=== PATIENT | female | born 2000 | race African-American/Black ===

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

== ENCOUNTER 2018-06-15 06:16 | Emergency (ER) | payer OTHER, SELFPAY ==
[2018-06-15 06:37] LABS: #Basophils 0.1 thou/uL (0.0-0.2); #Eosinphils 0.4 thou/uL (0.0-0.7); #Lymphocytes 4.7 thou/uL (1.20-3.40); #Monocytes 0.9 thou/uL (0.11-0.59); #Neutrophils 4.5 thou/uL (1.40-6.50); %Basophils 0.9 % (0.0-1.0); %Eosinophils 3.4 % (0.0-10.0); %Lymphocytes 44.9 % (28.0-48.0); %Monocytes 8.4 % (0.0-4.0); %Neutrophils 42.4 % (31.0-61.0); Hemoglobin 13.5 g/dL (12.0-16.0); Mean Corpuscular HGB CONC 33.3 g/dL (32.0-36.0); Mean Corpuscular Volume 87.1 fL (78.0-98.0); Mean Platelet Volume 7.6 fL (7.4-10.4); Platelet Count 275 thou/uL (130-400); Red Blood Cell (RBC) Count 4.65 mill/uL (4.00-5.20); White Blood Cell (WBC) Count 10.6 thou/uL (4.8-10.8)
[2018-06-15 06:40] LABS: Bilirubin Negative (Negative); Blood, Urine Negative (Negative); Clarity CLEAR (Clear); Glucose, Urine (Dipstick) Negative (Negative); Leukocyte Negative (Negative); Nitrite Negative (Negative); Protein, Urine (Dipstick) Negative (Neg-Trace); Specific Gravity, Urine 1.028 (1.002-1.036)
[2018-06-15 06:44] LABS: Pregnancy Test - Urine (BHCG) Negative (Negative); Pregu Control Background? CLEAR/WHITE (CLR/WHITE); Pregu Control Bar Appear? YES (CONTROL BAR); Specific Gravity 1.028 (1.002-1.036)
[2018-06-15] MEDS ORDERED: Azithromycin 250 MG TAB ONE (06:48)
[2018-06-15] MEDS ORDERED: Lidocaine 1% PF 5 ML VIAL ONE (06:48)
[2018-06-15] MEDS ORDERED: cefTRIAXone\\ROCEPHIN 250 MG VIAL ONE (06:48)
[2018-06-15 06:58] LABS: ALT (SGPT) 17 U/L (8-55); AST (SGOT) 13 U/L (5-34); Albumin 3.9 g/dL (3.5-5.0); Alkaline Phosphatase 57 U/L (40-150); Anion Gap 12 mmol/L (10-20); BUN (Urea Nitrogen) 13 mg/dL (7.0-18.7); Bilirubin, Total 0.2 mg/dL (0.2-1.2); Calc. Creatinine Clearance 0 mL/min (70-130); Calcium 9.1 mg/dL (7.8-10.44); Carbon Dioxide 24 mmol/L (22-29); Chloride 109 mmol/L (98-107); Estimated GFR-MDRD Greater than 90; Globulin 3.2 g/dL (2.4-3.5); Glucose 96 mg/dL (70-105); Lipase 21 U/L (8-78); Potassium 4.1 mmol/L (3.5-5.1); Protein, Total 7.1 g/dL (6.0-8.3); Sodium 141 mmol/L (136-145)
[2018-06-16 03:19] LABS: Chlamydia by PCR Not Detected (NotDetected); GC by PCR Not Detected (NotDetected)
== END 2018-06-15 07:45 | disposition home or self-care (01) ==
LOC: ERS 06:16
DX: R10.30 Lower abdominal pain, unspecified (principal); J45.909 Unspecified asthma, uncomplicated
CPT/HCPCS: 36415; 80053; 81003; 81025; 83690; 85025; 87480; 87491; 87510; 87591; 87660; 96372; J0696; J2001

== ENCOUNTER 2019-02-13 09:47 | Outpatient (CLI) | payer BC ==
--- NOTE | 2019-02-13 12:38 | ULT ---
OB ULTRASOUND: 02/13/19 HISTORY: anatomy. FINDINGS: A single live intrauterine gestation is seen with measurements corresponding to an estimated gestatio nal age of 21 weeks, 1 day and ISAIAS at 06/25/19. The estimated weight measures 393 grams or 14 o z (38th percentile by Hadlock criteria). measurements are as follows: BPD 4.97 cm 21 weeks, 1 day HC 18.67 cm 21 weeks, 0 day AC 15.31 cm 20 weeks, 4 day FL 3.65 cm 21 weeks, 5 day heart rate measures 138 beats per minute. MAGDALENE measures 12.6 cm. The placenta is anteriorly loca debora without evidence of placenta previa. A three vessel cord, cord insertion, kidneys, bladder, stomach, four chambered heart, lateral v entricles, cerebellum, spine, lips/nose, upper and lower extremities are visualized. No definite fet al anomalies are seen. IMPRESSION: Single liver IUP of 21 weeks, 1 day estimated gestational age and ISAIAS at 06/25/19. POS: OFF
== END 2019-02-13 09:48 | disposition home or self-care (01) ==
LOC: BICULT 09:47
DX: O09.92 Supervision of high risk pregnancy, unspecified, second trimester (principal); Z3A.21 21 weeks gestation of pregnancy
CPT/HCPCS: 76805

== ENCOUNTER 2019-06-18 05:22 | Inpatient (IN) | payer OTHER, SELFPAY ==
[2019-06-18] MEDS ORDERED: Bicitra 30 ML UDCUP PO SCH (05:36)
[2019-06-18] MEDS ORDERED: Promethazine HCl 25 MG/ML VIAL IM PRN ×3 (05:36→11:02)
[2019-06-18] MEDS ORDERED: hydrALAZINE 20 MG/ML VIAL SLOW IVP PRN ×2 (05:36→11:02)
[2019-06-18] MEDS ORDERED: Ondansetron PF 4 MG/2 ML Vial IVP PRN ×3 (05:36→11:02)
[2019-06-18] MEDS ORDERED: CEFAZOLIN 2 GM in Premix Bag 1 BAG IVPB SCH (05:36)
[2019-06-18] MEDS: Lactated Ringer's 1,000 ML IV SCH ×2 (05:46→06:57)
[2019-06-18 05:49] VITALS: BMI 37.1
[2019-06-18 06:05] LABS: Hemoglobin 10.7 g/dL (12.0-16.0); Mean Corpuscular HGB CONC 33.8 g/dL (32.0-36.0); Mean Platelet Volume 7.6 fL (7.4-10.4); Platelet Count 253 thou/uL (130-400); RBC Distribution Width 11.9 % (11.5-14.5); Red Blood Cell (RBC) Count 3.69 mill/uL (4.20-5.40)
[2019-06-18 06:41] LABS: Syphilis Antibody Nonreactive (Nonreactive); Syphilis Antibody Index 0.05 S/CO (<1.00 Non-Reactive)
[2019-06-18 06:43] LABS: Hep B Surf Ag Non-Reactive S/CO (NonReactive)
[2019-06-18] MEDS ORDERED: HYDROmorphone 2 MG/ML VIAL SLOW IVP PRN (06:55)
[2019-06-18] MEDS ORDERED: Promethazine HCl 25 MG SUPP PR PRN (06:55)
[2019-06-18] MEDS ORDERED: Ondansetron HCl/PF 4 MG/2 ML Vial IVP PRN (06:55)
[2019-06-18] MEDS ORDERED: L&D-Morphine 4 MG/ML VIAL SLOW IVP PRN (06:55)
[2019-06-18] MEDS ORDERED: Naloxone HCl 0.4 mg/ml Vial IV PRN (06:55)
[2019-06-18] MEDS ORDERED: Meperidine HCl/PF 25 MG/ML VIAL SLOW IVP PRN (06:55)
[2019-06-18] MEDS ORDERED: Naloxone HCl 0.4 mg/ml Vial IVP PRN ×2 (06:55)
[2019-06-18] MEDS ORDERED: diphenhydrAMINE 50 MG/ML VIAL IVP PRN (06:55)
[2019-06-18] MEDS ORDERED: Ketorolac Tromethamine 30 MG/ML VIAL IVP PRN (06:55)
[2019-06-18] MEDS ORDERED: Communication Order-Pharmacy FS SCH (07:00)
[2019-06-18] MEDS ORDERED: MORPHINE 5 MG/10 ML PF VIAL ONE (07:00)
[2019-06-18] MEDS ORDERED: Oxytocin 10 UNITS/ML VIAL ONE (07:00)
[2019-06-18] MEDS ORDERED: Ketorolac Tromethamine 30 MG/ML VIAL IVP SCH ×2 (07:00→14:30)
[2019-06-18] MEDS ORDERED: Ondansetron PF 4 MG/2 ML Vial ONE ×2 (07:28→08:29)
[2019-06-18] MEDS ORDERED: ePHEDrine/0.9% NaCl/PF SYRINGE 50 mg/10 ml ONE (07:48)
--- NOTE | 2019-06-18 08:39 | PDOC.OP ---
Operative Note - Operative Note Operative Note: Procedure Note Date of Procedure: 06/18/19 Resident Surgeon: Dr. Fei Nova Primary Surgeon: Dr. Marc Benjamin Procedure: Primary low transverse caesarean section Preoperative Diagnosis: 1) Term intrauterine 2) Prior C/S x2 Postoperative Diagnosis: 1)same as above Anesthesia: spinal Indications: The patient is a 19 year old G3,P2 female at 39.0 weeks presenting for scheduled repeat c/s. Procedure in Detail: After risks, benefits, and alternatives were explained to the patient, she gave informed consent. Pre-operative antibiotics included Cefazolin 2 gram IV. The patient was taken to the operating room and epidural anesthesia was found to be sufficient. She was placed in the supine position with a left tilt and prepped and draped in usual sterile fashion. A Pfannenstiel incision was made with a scalpel and carried down to the level of the fascia which was sharply nicked. The fascial cut was extended bilaterally with Guillen scissors. The inferior and superior edges of the cut fascial edges were elevated with Madina clamps and the underlying rectus muscles were sharply and bluntly dissected free. The recti were divided digitally and retracted manually. The peritoneum was entered bluntly and retracted manually. Bladder blade was placed. A low transverse score was made with the scalpel and the uterus was entered in the midline with the scalpel. Clear fluid was seen. The hysterotomy was extended manually. The infant was noted to be vertex and was easily delivered by fundal pressure. Mouth and nares were bulb suctioned. Cord clamped and cut and grossly normal female was handed to waiting nurse. Cord blood was obtained. Placenta was manually extracted, found to be intact with 3 vessel cord and discarded. The uterus was externalized and the endometrium was curetted with a dry lap. The bladder blade was replaced and the uterus was closed with a running locking 0-Vicryl. 2 figure of eight knots of 0- Vicryl were placed after this. Following this hemostasis was noted. The abdomen was irrigated with saline and suctioned free of clots. The uterus was internalized and the hysterotomy was again noted to be hemostatic. The peritoneum was closed using 3-0 vicryl in a running non-locking fashion. The fascia was closed with a running non-locking 0-PDS suture. The subcutaneous tissue was irrigated and and bovie was used to achieved hemostasis. The subcutaneous layer was approximated with 3 simple interrupted knots of 3-0 chromic. The skin was approximated with patricia and a pressure dressing was placed. All counts were correct. The patient tolerated the procedure well and was taken to the recovery room in stable condition. QBL: 625ml Complications: None Specimens: Cord blood sent to lab for blood type Findings: Grossly normal female infant. Grossly normal placenta with 3 vessel cord discarded. Drains: Paulino to gravity draining clear urine
[2019-06-18] MEDS ORDERED: Ketorolac Tromethamine 30 MG/ML VIAL ONE (09:30)
[2019-06-18] MEDS ORDERED: Promethazine HCl 25 MG/ML VIAL ONE (09:57)
[2019-06-18] MEDS ORDERED: diphenhydrAMINE 25 MG CAP PO PRN (11:02)
[2019-06-18] MEDS ORDERED: HYDROcodone/Acetaminophen 5/325 mg Tablet PO PRN (11:02)
[2019-06-18] MEDS ORDERED: NS / Oxytocin 40 units/1000ml 1,000 ML IV SCH (11:02)
[2019-06-18] MEDS ORDERED: Meperidine HCl/PF 25 MG/ML VIAL IM PRN (11:02)
[2019-06-18] MEDS ORDERED: Adacel (T-DAP) 0.5 ML SYRINGE IM ONE (11:02)
[2019-06-18] MEDS ORDERED: Lanolin Ointment 7 GM TUBE TOP PRN (11:02)
[2019-06-18] MEDS ORDERED: Bisacodyl 10 MG SUPP PR PRN (11:02)
[2019-06-18] MEDS ORDERED: Docusate Calcium (SURFAK) 240 MG CAP PO SCH (11:30)
[2019-06-18] MEDS ORDERED: Prenatal Vitamin 1 TAB PO SCH (11:30)
[2019-06-18] MEDS ORDERED: Ferrous Sulfate 325 MG TAB PO SCH (11:30)
[2019-06-18] MEDS: Morphine 2 MG/ML SYRINGE SLOW IVP PRN ×2 (13:10→18:33)
[2019-06-18] MEDS: Ketorolac Tromethamine 30 MG/ML VIAL IVP SCH ×2 (15:25→21:47)
[2019-06-18] MEDS: Ferrous Sulfate 325 MG TAB PO SCH (16:32)
[2019-06-18] MEDS: Simethicone Chewable 80 MG TAB PO PRN (21:46)
[2019-06-18] MEDS: Docusate Calcium (SURFAK) 240 MG CAP PO SCH (21:46)
[2019-06-18] MEDS: HYDROcodone/Acetaminophen 5/325 mg Tablet PO PRN (23:19)
[2019-06-19] MEDS: Ketorolac Tromethamine 30 MG/ML VIAL IVP SCH (03:31)
[2019-06-19] MEDS: Ibuprofen 800 MG TAB PO SCH ×3 (05:18→21:43)
[2019-06-19 05:45] LABS: Hemoglobin 9.4 g/dL (12.0-16.0); Mean Corpuscular HGB CONC 32.8 g/dL (32.0-36.0); Mean Corpuscular Hemoglobin 28.8 pg (27.0-31.0); Mean Corpuscular Volume 87.6 fL (78.0-98.0); Mean Platelet Volume 7.6 fL (7.4-10.4); Platelet Count 215 thou/uL (130-400); RBC Distribution Width 11.8 % (11.5-14.5); Red Blood Cell (RBC) Count 3.26 mill/uL (4.20-5.40); White Blood Cell (WBC) Count 13.9 thou/uL (4.8-10.8)
[2019-06-19] MEDS: HYDROcodone/Acetaminophen 5/325 mg Tablet PO PRN ×4 (06:18→19:51)
[2019-06-19] MEDS ORDERED: Ibuprofen 800 MG TAB PO SCH (09:00)
[2019-06-19] MEDS: Docusate Calcium (SURFAK) 240 MG CAP PO SCH ×2 (09:25→19:52)
[2019-06-19] MEDS: Ferrous Sulfate 325 MG TAB PO SCH ×2 (09:25→18:28)
[2019-06-19] MEDS: Prenatal Vitamin 1 TAB PO SCH (09:26)
[2019-06-19] MEDS: Simethicone Chewable 80 MG TAB PO PRN (19:52)
[2019-06-20] MEDS: Ibuprofen 800 MG TAB PO SCH ×4 (06:29→21:47)
[2019-06-20] MEDS: Ferrous Sulfate 325 MG TAB PO SCH ×2 (08:01→17:14)
[2019-06-20] MEDS: Prenatal Vitamin 1 TAB PO SCH (08:01)
[2019-06-20] MEDS: HYDROcodone/Acetaminophen 5/325 mg Tablet PO PRN ×4 (08:01→20:06)
[2019-06-20] MEDS: Docusate Calcium (SURFAK) 240 MG CAP PO SCH ×2 (08:01→21:47)
[2019-06-20] MEDS: Simethicone Chewable 80 MG TAB PO PRN ×2 (11:35→15:44)
[2019-06-21] MEDS: HYDROcodone/Acetaminophen 5/325 mg Tablet PO PRN ×2 (04:23→09:23)
[2019-06-21] MEDS: Ibuprofen 800 MG TAB PO SCH (06:19)
[2019-06-21 08:17] VITALS: BP 130/78; TEMP 98.3
[2019-06-21] MEDS: Prenatal Vitamin 1 TAB PO SCH (09:21)
[2019-06-21] MEDS: Docusate Calcium (SURFAK) 240 MG CAP PO SCH (09:22)
[2019-06-21] MEDS: Ferrous Sulfate 325 MG TAB PO SCH (09:22)
== END 2019-06-21 11:25 | disposition home or self-care (01) | DRG 788 ==
LOC: L&D 05:22 → 3SW 11:12
PROVIDERS: ADMIT Family Medicine; ATTEND Family Medicine
PROC: 10D00Z1 Extraction of Products of Conception, Low, Open Approach (ICD-10-PCS; principal; 2019-06-18)
DX: O34.211 Maternal care for low transverse scar from previous cesarean delivery (principal); Z3A.39 39 weeks gestation of pregnancy; Z37.0 Single live birth
CPT/HCPCS: 36415; 51702; 85027; 86780; 86850; 86900; 86901; 87340; J0690; J1885; J2270; J2274; J2405; J2550; J2590; Q0163

== ENCOUNTER 2020-03-10 16:23 | Outpatient (CLI) | payer OTHER ==
--- NOTE | 2020-03-10 17:43 | ULT ---
Obstetrical ultrasound: 03/10/2020 COMPARISON: None HISTORY: 20-year-old female undergoing assessment for size and dates FINDINGS: The placenta is located posteriorly with no evidence for previa or abruption. The sonograph er reports a breech presentation. The urinary bladder, intracranial contents, nose and lips, stomach, and spine appear grossly unremarkable. heart rate is 140 bpm. Four-chamber heart view is slightly suboptimal secondary to position but appears grossly unremarkable. Region of kidneys appears within normal limits. Amniotic fluid index is 9.0 cm. Cervical length is approximately 3.1 cm. Umbilical cord and umbilical cord insertion site appear grossly unremarkable. biometry: Biparietal diameter 4.7 cm 20 weeks 2 days Head circumference 18.5 cm 20 weeks 6 days Abdominal circumference 15.3 cm 20 weeks 4 days Femur length 3.6 cm 21 weeks 3 days Average age based on ultrasound is 20 weeks 6 days. Estimated weight is 382 g +/- 56 g (2nd per centile). This percentile may be artificially low as gestational age based on last menstrual period is 22 weeks 3 days. IMPRESSION: Intrauterine gestation as detailed above.
== END 2020-03-10 16:24 | disposition home or self-care (01) ==
LOC: BICULT 16:23
PROVIDERS: ATTEND Family Medicine
DX: O09.892 Supervision of other high risk pregnancies, second trimester (principal); Z3A.20 20 weeks gestation of pregnancy
CPT/HCPCS: 76805

== ENCOUNTER 2020-06-23 09:15 | Outpatient (CLI) | payer OTHER ==
[2020-06-23 18:01] LABS: SARS-CoV-2 MS2 Positive; SARS-CoV-2 N Gene Negative; SARS-CoV-2 S Gene Negative; SARS-CoV-2 by NAA Not Detected (NotDetected); SARS-CoV-2 orf1ab Negative
== END 2020-06-23 09:16 | disposition home or self-care (01) ==
LOC: LABBT 09:15
PROVIDERS: ATTEND Family Medicine
DX: Z20.828 Contact with and (suspected) exposure to other viral communicable diseases (principal)
CPT/HCPCS: 87635; U0003

== ENCOUNTER 2020-06-30 09:34 | Inpatient (IN) | payer OTHER ==
[2020-06-30] MEDS ORDERED: Famotidine/PF 20 mg/2ml Vial SLOW IVP PRN (09:35)
[2020-06-30] MEDS ORDERED: hydrALAZINE 20 MG/ML VIAL SLOW IVP PRN ×2 (09:35→14:54)
[2020-06-30] MEDS ORDERED: CEFAZOLIN 2 GM in Premix Bag 1 BAG IVPB SCH ×2 (09:35→11:30)
[2020-06-30] MEDS ORDERED: Promethazine HCl 25 MG/ML VIAL IM PRN ×2 (09:35→12:31)
[2020-06-30] MEDS ORDERED: Ondansetron PF 4 MG/2 ML Vial IVP PRN ×3 (09:35→14:54)
[2020-06-30] MEDS ORDERED: Bicitra 30 ML UDCUP PO PRN (09:35)
[2020-06-30] MEDS: Lactated Ringer's 1,000 ML IV SCH ×3 (09:45→21:11)
[2020-06-30 10:13] VITALS: BMI 32.5
[2020-06-30 10:18] LABS: Mean Corpuscular HGB CONC 32.3 g/dL (32.0-36.0); Mean Corpuscular Hemoglobin 28.6 pg (27.0-31.0); Mean Corpuscular Volume 88.6 fL (78.0-98.0); Mean Platelet Volume 7.5 fL (7.4-10.4); Platelet Count 254 thou/uL (130-400); RBC Distribution Width 12.1 % (11.5-14.5); Red Blood Cell (RBC) Count 3.83 mill/uL (4.20-5.40); White Blood Cell (WBC) Count 12.5 thou/uL (4.8-10.8)
[2020-06-30 10:52] LABS: HBSAg Index 0.15 S/CO (0-0.99); Hep B Surf Ag Non-Reactive S/CO (NonReactive); Syphilis Antibody Nonreactive (Nonreactive); Syphilis Antibody Index 0.04 S/CO (<1.00 Non-Reactive)
[2020-06-30] MEDS ORDERED: Morphine PF 10 MG/10 ML VIAL ONE (11:30)
[2020-06-30] MEDS ORDERED: Dexamethasone 4 mg/ml Vial ONE (11:31)
[2020-06-30] MEDS ORDERED: PHENYLEPHRINE-NS 100 MCG/ML 10 ML SYRINGE ONE (11:31)
[2020-06-30] MEDS ORDERED: Oxytocin 10 UNITS/ML VIAL ONE ×2 (11:31→11:32)
[2020-06-30] MEDS ORDERED: Ondansetron PF 4 MG/2 ML Vial ONE (11:31)
[2020-06-30] MEDS ORDERED: ePHEDrine 50 MG/ML VIAL ONE (11:31)
[2020-06-30] MEDS ORDERED: Ketorolac Tromethamine 30 MG/ML VIAL ONE (11:31)
[2020-06-30] MEDS ORDERED: Phenylephrine 10 MG/ML VIAL ONE (11:36)
[2020-06-30 12:20] LABS: Amphetamine Not Detected (NotDetected); Barbiturates Screen Not Detected (NotDetected); Benzodiazepine Screen Not Detected (NotDetected); Cocaine Metabolite Screen Not Detected (NotDetected); Medtox Control Line Valid? VALID (VALID); Medtox Reader # READER 4; Methadone Not Detected (NotDetected); Methamphetamine Not Detected (NotDetected); Opiate Screen Not Detected (NotDetected); Oxycodone Screen Not Detected (NotDetected); Phencyclidine (PCP) Not Detected (NotDetected); THC/Cannabinoid Screen Detected (NotDetected); Tricyclic Screen Not Detected (NotDetected)
[2020-06-30] MEDS ORDERED: Naloxone HCl 0.4 mg/ml Vial IVP PRN ×2 (12:31)
[2020-06-30] MEDS ORDERED: HYDROmorphone 2 MG/ML VIAL SLOW IVP PRN (12:31)
[2020-06-30] MEDS ORDERED: Ketorolac Tromethamine 30 MG/ML VIAL IVP PRN (12:31)
[2020-06-30] MEDS ORDERED: Meperidine HCl/PF 25 MG/ML VIAL SLOW IVP PRN (12:31)
[2020-06-30] MEDS ORDERED: Promethazine HCl 25 MG SUPP PR PRN (12:31)
[2020-06-30] MEDS ORDERED: diphenhydrAMINE 50 MG/ML VIAL IVP PRN (12:31)
[2020-06-30] MEDS ORDERED: Naloxone HCl 0.4 mg/ml Vial IV PRN (12:31)
[2020-06-30] MEDS ORDERED: Ondansetron HCl/PF 4 MG/2 ML Vial IVP PRN (12:31)
[2020-06-30] MEDS ORDERED: L&D-Morphine 4 MG/ML VIAL SLOW IVP PRN (12:31)
[2020-06-30] MEDS ORDERED: Ketorolac Tromethamine 30 MG/ML VIAL IVP SCH (12:45)
[2020-06-30] MEDS ORDERED: Communication Order-Pharmacy FS SCH (12:45)
[2020-06-30] MEDS ORDERED: NS w/ Oxytocin 30 units 0 ML ONE (14:25)
[2020-06-30] MEDS ORDERED: NS / Oxytocin 40 units/1000ml 1,000 ML IV SCH (14:54)
[2020-06-30] MEDS ORDERED: Meperidine HCl/PF 25 MG/ML VIAL IM PRN (14:54)
[2020-06-30] MEDS ORDERED: Bisacodyl 10 MG SUPP PR PRN (14:54)
[2020-06-30] MEDS ORDERED: Lanolin Ointment 7 GM TUBE TOP PRN (14:54)
[2020-06-30] MEDS ORDERED: Adacel (T-DAP) 0.5 ML SYRINGE IM ONE (14:54)
[2020-06-30] MEDS ORDERED: Simethicone Chewable 80 MG TAB PO PRN (14:54)
[2020-06-30] MEDS ORDERED: NS w/ Oxytocin 30 units 500 ML IVPB SCH (15:00)
[2020-06-30] MEDS: Ketorolac Tromethamine 30 MG/ML VIAL IVP SCH (17:58)
[2020-06-30] MEDS: Docusate Calcium (SURFAK) 240 MG CAP PO SCH (22:17)
[2020-06-30] MEDS: Ferrous Sulfate 325 MG TAB PO SCH (22:17)
[2020-07-01] MEDS: Ketorolac Tromethamine 30 MG/ML VIAL IVP SCH ×2 (00:05→06:11)
[2020-07-01] MEDS: HYDROcodone/Acetaminophen 5/325 mg Tablet PO PRN ×4 (04:37→19:40)
[2020-07-01] MEDS: diphenhydrAMINE 25 MG CAP PO PRN ×4 (04:37→19:50)
[2020-07-01 07:13] LABS: Hemoglobin 10.3 g/dL (12.0-16.0); Mean Corpuscular HGB CONC 33.5 g/dL (32.0-36.0); Mean Corpuscular Hemoglobin 29.9 pg (27.0-31.0); Mean Corpuscular Volume 89.2 fL (78.0-98.0); Mean Platelet Volume 7.6 fL (7.4-10.4); Platelet Count 223 thou/uL (130-400); RBC Distribution Width 11.9 % (11.5-14.5); Red Blood Cell (RBC) Count 3.46 mill/uL (4.20-5.40); White Blood Cell (WBC) Count 17.8 thou/uL (4.8-10.8)
--- NOTE | 2020-07-01 07:16 | PDOC.OPDEL ---
OB Operative/Delivery Note - Additional Findings/Plan Compilations/Other Findings: Procedure Note Date of Procedure: 06/30/20 Resident Surgeon: Loni Mcnair MD PGY-3 Attending Surgeon: Marc Benjamin MD Procedure: Repeat low transverse caesarean section Preoperative Diagnosis: 1) Term intrauterine 2) Hx of x3 3) Asthma Postoperative Diagnosis: 1) Term intrauterine , delivered 2) Asthma 3) Breech delivery Anesthesia: spinal Indications: The patient is a 20 year old female at 38.3 weeks gestation who presents for a repeat scheduled delivered at 1232 Procedure in Detail: After risks, benefits, and alternatives were explained to the patient, she gave informed consent. Pre-operative antibiotics included Cefazolin 2 gram IV. The patient was taken to the operating room and spinal anesthesia was initiated. She was placed in the supine position with a left tilt and prepped and draped in usual sterile fashion. A Pfannenstiel incision was made with a scalpel and carried down to the level of the fascia which was sharply nicked. The fascial cut was extended bilaterally with Guillen scissors. The inferior and superior edges of the cut fascial edges were elevated with Madina clamps and the underlying rectus muscles were sharply and bluntly dissected fr ee. The recti were divided digitally and sharply due to adhesions and retracted manually. The peritoneum was entered bluntly and retracted manually. A low transverse score was made with the scalpel and the uterus was entered in the midline with the scalpel. Clear fluid was seen. The hysterotomy was extended manually. The was noted to be breech and delivered in the usual fashion. Mouth and nares were bulb suctioned. Cord clamped and cut and grossly normal female was handed to waiting nurse. Cord blood was obtained. Placenta was expectantly extracted, found to be intact with 3 vessel cord and discarded. The uterus was externalized and the endometrium was curetted with a dry lap. The uterus was closed with a running locking #1 Monocryl suture. Following this hemostasis was noted. The abdomen was suctioned free of clots. The uterus was internalized and the hysterotomy was again noted to be hemostatic. Areas of bleeding rectus were cauterized, Janice was also applied. The fascia was closed with a running non-locking 0-PDS suture. The subcutaneous tissue was irrigated and bleeders were cauterized. Subcutaneous tissue was closed with 2-0 plain gut. The skin was approximated with patricia and a pressure dressing was placed. All counts were correct. The patient tolerated the procedure well and was taken to the recovery room in stable condition. Quantitative Blood Loss: 405ml Complications: None Specimens: Cord blood sent to lab for blood type Findings: Grossly normal female infant with Apgars of 8 and 9. Grossly normal placenta with 3 vessel cord discarded. Drains: Paulino to gravity draining clear urine
[2020-07-01] MEDS: Ferrous Sulfate 325 MG TAB PO SCH (07:44)
[2020-07-01] MEDS: Docusate Calcium (SURFAK) 240 MG CAP PO SCH ×2 (08:45→19:40)
[2020-07-01] MEDS: Prenatal Vitamin 1 TAB PO SCH (08:45)
[2020-07-01] MEDS: Ibuprofen 800 MG TAB PO SCH ×2 (13:50→21:23)
[2020-07-02] MEDS: HYDROcodone/Acetaminophen 5/325 mg Tablet PO PRN ×7 (00:32→23:06)
[2020-07-02] MEDS: diphenhydrAMINE 25 MG CAP PO PRN ×3 (00:32→18:30)
[2020-07-02] MEDS: Ferrous Sulfate 325 MG TAB PO SCH ×3 (03:04→22:18)
[2020-07-02] MEDS: Ibuprofen 800 MG TAB PO SCH ×3 (06:10→21:28)
[2020-07-02] MEDS: Docusate Calcium (SURFAK) 240 MG CAP PO SCH ×2 (09:40→21:28)
[2020-07-02] MEDS: Prenatal Vitamin 1 TAB PO SCH (09:40)
[2020-07-03] MEDS: HYDROcodone/Acetaminophen 5/325 mg Tablet PO PRN ×3 (04:16→12:23)
[2020-07-03] MEDS: Ibuprofen 800 MG TAB PO SCH ×2 (05:18→14:12)
[2020-07-03] MEDS: Ferrous Sulfate 325 MG TAB PO SCH (07:22)
[2020-07-03] MEDS: Docusate Calcium (SURFAK) 240 MG CAP PO SCH (08:17)
[2020-07-03] MEDS: Prenatal Vitamin 1 TAB PO SCH (08:18)
[2020-07-03 08:28] VITALS: BP 133/77; TEMP 98.1
[2020-07-03] MEDS ORDERED: Measles/Mumps/Rubella 10 MCG/0.5 ML VIAL SC ONE (14:30)
== END 2020-07-03 15:05 | disposition home or self-care (01) | DRG 788 ==
LOC: L&D 09:34 → 3SW 15:47
PROVIDERS: ADMIT Family Medicine; ATTEND Family Medicine
PROC: 10D00Z1 Extraction of Products of Conception, Low, Open Approach (ICD-10-PCS; principal; 2020-07-01)
DX: O34.211 Maternal care for low transverse scar from previous cesarean delivery (principal); O36.5930 Maternal care for other known or suspected poor fetal growth, third trimester, not applicable or unspecified; O99.52 Diseases of the respiratory system complicating childbirth; Z20.822 Contact with and (suspected) exposure to COVID-19; O32.1XX0 Maternal care for breech presentation, not applicable or unspecified; Z3A.38 38 weeks gestation of pregnancy; Z37.0 Single live birth; J45.909 Unspecified asthma, uncomplicated
CPT/HCPCS: 36415; 51702; 80306; 85027; 86780; 86850; 86900; 86901; 87340; 90707; J0690; J1100; J1200; J1885; J2270; J2310; J2370; J2405; J2590; J3010; J3490; Q0163

== ENCOUNTER 2021-07-22 12:21 | Outpatient (CLI) | payer OTHER | END 2021-07-22 12:22 | disposition home or self-care (01) | LOC: BICULT 12:21 | PROVIDERS: ATTEND Family Medicine | DX: O09.892 Supervision of other high risk pregnancies, second trimester (principal); Z3A.27 27 weeks gestation of pregnancy | CPT/HCPCS: 76805 ==